=== PATIENT | male | born 1985 | race African-American/Black ===

== ENCOUNTER 2020-11-12 14:35 | Emergency (ER) | payer SELFPAY ==
[2020-11-12] MEDS ORDERED: ONDANSETRON HCL INJ/PF 4 MG/2 ML SDV IV ONE (15:20)
--- NOTE | 2020-11-12 15:26 | ER Document Report ---
ED Medical Screen (RME) - General Chief Complaint: Vomiting Stated Complaint: VOMITING Time Seen by Provider: 11/12/20 15:19 Mode of Arrival: Wheelchair Information source: Patient, Friend Notes: 35-year-old male presented to ED for possible alcohol poisoning. He states he drank more alcohol than he is ever drink before and he is dizzy he cannot stand up cannot stop throwing up and feels like he has poison himself with alcohol. His friend brought him in states that he has never seen him like this before. He states his head is bleeding is well. I have ordered blood and urine and IV fluids Zofran IV and EKG I have talked with the charge nurse to please get a room get his blood drawn and IV fluids going. They stated they would get a room soon as they were possible. I have greeted and performed a rapid initial assessment of this patient. A comprehensive ED assessment and evaluation of the patient, analysis of test results and completion of medical decision making process will be conducted by an additional ED providers. Physical Exam - Vital signs Vitals: Temp Pulse Resp BP Pulse Ox 97.8 F 102 H 20 134/79 H 100 11/12/20 14:38 11/12/20 14:38 11/12/20 14:38 11/12/20 14:38 11/12/20 14:38 Course - Vital Signs Vital signs: Temp Pulse Resp BP Pulse Ox 97.8 F 102 H 20 134/79 H 100 11/12/20 14:38 11/12/20 14:38 11/12/20 14:38 11/12/20 14:38 11/12/20 14:38
[2020-11-12] MEDS: NORMAL SALINE 1000 ML 1,000 ML IV PRN ×2 (17:29→19:55)
[2020-11-12 17:40] LABS: ABSOLUTE BASOPHILS # (AUTO) 0.1 10^3/uL (0.0-0.2); ABSOLUTE LYMPHOCYTES (AUTO) 1.5 10^3/uL (0.5-4.7); ABSOLUTE MONOCYTES (AUTO) 0.3 10^3/uL (0.1-1.4); ABSOLUTE NEUT (AUTO) 8.1 10^3/uL (1.7-8.2); BASOPHILS % (AUTO) 1.2 % (0-2); EOSINOPHILS % (AUTO) 0.5 % (0-6); HEMATOCRIT 44.1 % (37.9-51.0); HEMOGLOBIN 14.8 g/dL (13.5-17.0); LYMPHOCYTES % (AUTO) 15.3 % (13-45); MEAN CORPUSCULAR HEMOGLOBIN 26.8 pg (27.0-33.4); MEAN CORPUSCULAR HGB CONC 33.5 g/dL (32.0-36.0); MEAN CORPUSCULAR VOLUME 80 fl (80-97); MONOCYTES % (AUTO) 2.7 % (3-13); PLATELET COUNT 275 10^3/uL (150-450); RED BLOOD COUNT 5.52 10^6/uL (4.35-5.55); RED CELL DISTRIBUTION WIDTH 12.3 % (11.5-14.0); SEGMENTED NEUTROPHILS % (AUTO) 80.3 % (42-78); TOTAL CELLS COUNTED % (AUTO) 100 %
[2020-11-12] MEDS ORDERED: PROCHLORPERAZINE EDISYLATE INJ 10 MG/2 ML VIAL IV ONE (18:59)
[2020-11-12] MEDS ORDERED: DIPHENHYDRAMINE HCL 50 MG/ML VIAL IV ONE (19:00)
--- NOTE | 2020-11-12 19:04 | EKG REPORT ---
SEVERITY:- ABNORMAL ECG - SINUS RHYTHM ST ELEVATION, PROBABLE LATERAL INJURY ST ELEVATION, CONSIDER INFERIOR INJURY NO OLD EKG FOR COMPARISON, NEED CLINICAL CORRELATION. : Confirmed by: Juan Carlos Andrew MD 12-Nov-2020 19:03:32
[2020-11-12 19:18] LABS: ANION GAP 12 (5-19)
[2020-11-12 19:19] LABS: ALBUMIN 4.8 g/dL (3.5-5.0); ALCOHOL < 10 mg/dL (NONE DETECTED); ALKALINE PHOSPHATASE 112 U/L (38-126); ASPARTATE AMINO TRANSFERASE 29 U/L (17-59); BILIRUBIN,DIRECT 0.1 mg/dL (0.0-0.4); BILIRUBIN,TOTAL 0.8 mg/dL (0.2-1.3); BLOOD UREA NITROGEN 12 mg/dL (7-20); CALCIUM 9.7 mg/dL (8.4-10.2); CARBON DIOXIDE 26 mmol/L (22-30); CHLORIDE 104 mmol/L (98-107); GLUCOSE 93 mg/dL (75-110); PHOSPHORUS 3.1 mg/dL (2.5-4.5); POTASSIUM 4.3 mmol/L (3.6-5.0); TOTAL PROTEIN 8.3 g/dL (6.3-8.2)
[2020-11-12] MEDS ORDERED: ONDANSETRON HCL INJ/PF 4 MG/2 ML SDV ONE (19:51)
--- NOTE | 2020-11-12 22:06 | RADIOLOGY REPORT (SQ) ---
EXAM DESCRIPTION: CT HEAD WITHOUT IV CONTRAST COMPLETED DATE/TME: 11/12/2020 21:44 CLINICAL HISTORY: 35 years, Male, Left side ÁLVAREZ COMPARISON: None. TECHNIQUE: Noncontrast imaging of the brain was performed. Images stored on PACS. All CT scanners at this facility use dose modulation, iterative reconstruction, and/or weight based dosing when appropriate to reduce radiation dose to as low as reasonably achievable (ALARA). [facility]: Dose Right [facility]: CareDose [facility]: Dose Right [facility]: Teradose 4D [facility]: [employer] LIMITATIONS: None. FINDINGS: There is no acute intracranial hemorrhage, abnormal mass effect, or major vascular territorial infarction. The ventricular system and extra-axial spaces are within normal limits. The calvarium is intact. There is 8 mm mucosal thickening within the left maxillary sinus floor without air-fluid level. IMPRESSION: 1. No intracranial abnormality. 2. Mild left maxillary sinus mucosal thickening without air-fluid level. TECHNICAL DOCUMENTATION: Quality ID # 436: Final reports with documentation of one or more dose reduction techniques (e.g., Automated exposure control, adjustment of the mA and/or kV according to patient size, use of iterative reconstruction technique) copyright 2011 [employer]- All Rights Reserved
--- NOTE | 2020-11-12 22:21 | ER Document Report ---
ED General - General Chief Complaint: Headache Stated Complaint: VOMITING Time Seen by Provider: 11/12/20 15:19 Mode of Arrival: Wheelchair Information source: Patient TRAVEL OUTSIDE OF THE [place] IN LAST 30 DAYS: No - HPI Notes: This patient is a 35-year-old male who presents to the emergency department complaining of not feeling well with a headache and malaise and weakness and feeling as though he was going to pass out after a night of partying and d rinking last night. He admits to drinking multiple alcoholic beverages after attending a ceremony for a friend who was murdered a few months ago. He also admits to smoking some marijuana and using 2 lines of cocaine. He does point out that it was less than half a gram. He says that he does not drink or use drugs on an every day basis. He denies any other symptoms. He denies any other exposure to illness. He denies any head trauma or loss of consciousness. He said no seizures. He denies any chest pain, palpitations, dyspnea, abdominal pain, diarrhea, vomiting, or urinary symptoms. He is otherwise in his usual state of health. - Related Data Allergies/Adverse Reactions: No Known Allergies Allergy (Verified 11/12/20 20:37) Past Medical History - General Information source: Patient, Friend - Social History Smoking Status: Current Every Day Smoker Frequency of alcohol use: Social Drug Abuse: Cocaine, Marijuana Family History: Reviewed & Not Pertinent - Medical History Medical History: Other Notes: Past medical history as documented in electronic health record is reviewed. Interestingly, the patient reports a fairly lengthy history of migraine as a child and adolescent which has essentially resolved as an adult. Past Surgical History: Reports: Hx Orthopedic Surgery - left femur Review of Systems - Review of Systems Notes: All other systems reviewed are negative or noncontributory except as noted in history of present illness. Physical Exam - Vital signs Vitals: Temp Pulse Resp BP Pulse Ox 97.8 F 102 H 20 134/79 H 100 11/12/20 14:38 11/12/20 14:38 11/12/20 14:38 11/12/20 14:38 11/12/20 14:38 - Notes Notes: General: Well-developed well-nourished male no acute distress. Vital signs and nursing chief complaint are reviewed. HEENT normocephalic atraumatic. EOMI. PERRLA. ENT exam otherwise normal. Neck: Supple, nontender, no adenopathy. Chest: Normal configuration lungs clear to auscultation. Heart: Regular rate and rhythm no murmur rub or gallop. Abdomen: Soft nontender no mass significant rigidity or guarding. Extremities: Without clubbing cyanosis edema or deformity. Skin: Warm moist good turgor no rashes. Neuro: Alert and oriented x3. Cranial nerves II through XII appear intact. Strength and sensation are within normal limits. Gait and station were not tested. Course - Re-evaluation Re-evalutation: 11/13/20 01:54 After interviewing the patient I felt that his left-sided headache and other symptoms might actually represent a migraine. We treated him with some Benadryl and Compazine along with some IV fluids. His headache completely resolved and he said he felt 100% better. His labs were all normal or nondiagnostic. His CT scan was normal. I think it is safe to send him home with symptomatic treatment instructions. He should follow up with primary care provider of choice if his symptoms recur or return if any other concerning symptoms develop. - Vital Signs Vital signs: Temp Pulse Resp BP Pulse Ox 98.4 F 55 L 16 127/62 H 100 11/12/20 20:40 11/12/20 22:39 11/12/20 22:39 11/12/20 22:39 11/12/20 22:39 - Laboratory Results Result Diagrams: 11/12/20 17:27 11/12/20 18:28 Laboratory Results Interpreted: 11/12/20 11/12/20 11/12/20 17:27 18:28 22:12 [facility] 26.8 L O'Brien % (Auto) 2.7 L Seg Neutrophils % 80.3 H Total Protein 8.3 H Urine Protein 30 H Urine Ketones 80 H Urine Urobilinogen 2.0 H Critical Laboratory Results Reviewed: No Critical Results - Radiology Results Radiology Results Interpreted: 11/13/20 01:[address] 11/12/20 19:00 IMPRESSION: 1. No intracranial abnormality. 2. Mild left maxillary sinus mucosal thickening without air-fluid level. TECHNICAL DOCUMENTATION: Quality ID # 436: Final reports with documentation of one or more dose reduction techniques (e.g., Automated exposure control, adjustment of the mA and/or kV according to patient size, use of iterative reconstruction technique) copyright 2010 [employer]- All Rights Reserved Critical Radiology Results Reviewed: No Critical Results Discharge - Discharge Clinical Impression: Migraine without aura Qualifiers: Status migrainosus presence: without status migrainosus Intractability: not intractable Qualified Code(s): G43.009 - Migraine without aura, not intractable, without status migrainosus Condition: Good Disposition: HOME, SELF-CARE Additional Instructions: Make sure you drink plenty of fluids. You may try naproxen (Aleve) [id number] with a caffeinated beverage if your headache comes back. Follow-up with your primary care doctor if your symptoms persist. Return to the emergency department if any other concerning symptoms develop.
[2020-11-12 22:40] VITALS: BP 127/62
[2020-11-12 22:58] LABS: URINE AMPHETAMINES SCREEN NEGATIVE; URINE BARBITURATES SCREEN NEGATIVE; URINE BENZODIAZEPINES SCREEN NEGATIVE; URINE METHADONE SCREEN NEGATIVE; URINE PHENCYCLIDINE SCREEN NEGATIVE
[2020-11-12 22:59] LABS: URINE COCAINE SCREEN UNCONFIRMED POSITIVE; URINE MARIJUANA (THC) SCREEN UNCONFIRMED POSITIVE
[2020-11-12 23:23] LABS: APPEARANCE,URINE CLEAR; BILIRUBIN,URINE NEGATIVE (NEGATIVE); COLOR,URINE YELLOW; GLUCOSE, URINE NEGATIVE (NEGATIVE); KETONES,URINE 80 mg/dL (NEGATIVE); PROTEIN,URINE 30 mg/dL (NEGATIVE); URINE SPECIFIC GRAVITY 1.027
== END 2020-11-12 22:40 | disposition home or self-care (01) ==
LOC: ER 14:35
DX: G43.009 Migraine without aura, not intractable, without status migrainosus (principal); R53.81 Other malaise; R53.1 Weakness; F10.10 Alcohol abuse, uncomplicated; F12.10 Cannabis abuse, uncomplicated; F14.10 Cocaine abuse, uncomplicated; F17.200 Nicotine dependence, unspecified, uncomplicated
CPT/HCPCS: 93005; 99285; 96361; 96374; 96375; 36415; 80307 ×2; 83735; 84100; 85025; 80053; 81001; 70450; 93010; J1200; J0780; J2405; J7030